=== PATIENT | male | born 1950 | race Caucasian/White ===

== ENCOUNTER 2017-03-05 15:44 | Day surgery (SDC) | payer BC ==
[~2017-03-05 15:44] MED LIST: Bupivacaine 0.25% SDV* 30 ML ONE; Lidocaine 1% INJ* 10 MG/ML 30 ML SDV ONE
[2017-03-05] MEDS ORDERED: Bupivacaine 0.25% SDV* 30 ML ONE (17:03)
[2017-03-05] MEDS ORDERED: Lidocain 1% EPI 1:100,000 * 30 ML MDV ONE (17:04)
[2017-03-05 18:20] VITALS: BP 141/55
--- NOTE | 2017-03-06 13:53 | OP ---
DATE OF OPERATION: 03/05/17 - [facility] DATE OF : 54 SURGEON: Bob Harp MD. LEAD CAREGIVER: DESMOND Guardado. ANESTHESIOLOGIST: None. ANESTHESIA: Local only with 1% lidocaine with epinephrine and bicarbonate. PRE-OP DIAGNOSIS: Left carpal tunnel syndrome. POST-OP DIAGNOSIS: Left carpal tunnel syndrome. OPERATIVE PROCEDURE: Left open carpal tunnel release. INDICATIONS: Boni is a 66-year-old male with progressive left carpal tunnel syndrome over decades. He has tried nonoperative treatments. We talked about risks and benefits, he wanted to proceed with a left carpal tunnel release. ESTIMATED BLOOD LOSS: 5 mL. COMPLICATIONS: None. FINDINGS: As expected. DESCRIPTION OF PROCEDURE: Boni was seen in the preoperative holding area. The correct side, site, and procedure were identified. We had a time-out, then I anesthetized the operative area with 1% lidocaine with epinephrine and bicarbonate. We then came back to the operating room where the arm was prepped and draped in the usual fashion and a formal time-out was performed. I began my making a 2 to 3 cm longitudinal incision in the standard location for an open carpal tunnel release. Dissection was carried down to the subcutaneous tissue through the palmar fascia to expose the transverse carpal ligament. This was released just off the radial aspect of the hook of the hamate. The release was carried out from distal to proximal. When I got to the proximal aspect of the incision, I went ahead and released the subcutaneous tissue and retracted it volarly and ulnarly. I then used the tenotomy scissors to release the rest of the transverse carpal ligament and the distal antebrachial fascia just off the ulnar aspect of the palmaris longus tendon. I then checked the decompression proximally and distally. I released the femur fibers distally and the palmar fascia distally. There was absolutely no compression on the nerve, I therefore irrigated out the wound and the skin was closed with 4-0 nylon suture. Wound was dressed with Xeroform, 4x4's, sterile Webril and an Jovany bandage. He was then taken to the recovery room in stable condition. [id number]/[facility] #: [id number] [facility]ENTERValentina
== END 2017-03-05 18:14 | disposition home or self-care (01) ==
LOC: OREAST 15:44
PROVIDERS: ATTEND Orthopaedic Surgery Hand Surgery
DX: G56.02 Carpal tunnel syndrome, left upper limb (principal)
CPT/HCPCS: J2001